=== PATIENT | female | born 1965 | race Caucasian/White ===

== ENCOUNTER 2022-11-08 14:55 | Outpatient (CLI) | payer OTHER | END 2022-11-08 20:24 | disposition home or self-care (01) | LOC: SCT 14:55 | PROVIDERS: ATTEND Family Medicine | DX: R22.1 Localized swelling, mass and lump, neck (principal); M47.812 Spondylosis without myelopathy or radiculopathy, cervical region | CPT/HCPCS: 70491; 76376; Q9967 ==

== ENCOUNTER 2023-05-06 22:06 | Emergency (ER) | payer OTHER ==
[~2023-05-06] VITALS: Ht 160 cm; Wt 81.6 kg
[2023-05-06 22:21] VITALS: BP_SYST 134; PULSE 78; RESP 18; TEMP 97.4; O2SAT 95
[2023-05-06] MEDS ORDERED: KETOROLAC TROMETHAMINE 60 MG/2 ML VIAL IM ONE (22:45)
[2023-05-06 23:15] LABS: CLARITY/URINE CLEAR (CLEAR); COLOR,URINE YELLOW (YELLOW); PH,URINE 6.5 (5.0-8.0)
[2023-05-06 23:16] LABS: BILIRUBIN,URINE NEGATIVE (NEGATIVE); BLOOD, URINE TRACE (NEGATIVE); GLUCOSE,URINE NEGATIVE (NEGATIVE); KETONES,URINE NEGATIVE (NEGATIVE); LEUKOCYTE ESTERASE ,URINE 2+ (NEGATIVE); NITRITE, URINE NEGATIVE (NEGATIVE); PROTEIN URINE NEGATIVE (NEGATIVE); UROBILINOGEN,URINE 0.2 (0.2-1.0)
[2023-05-06 23:30] LABS: BACTERIA,URINE FEW /HPF (None Seen)
[2023-05-06 23:31] LABS: BASOPHILS % (AUTO) 0.6 % (0.0-2.0); EOSINOPHILS # (AUTO) 0.1 K/uL (0.0-0.4); EOSINOPHILS % (AUTO) 1.9 % (0.0-4.0); LYMPHOCYTES # (AUTO) 1.8 K/uL (1.0-5.5); LYMPHOCYTES % (AUTO) 30.3 % (20.5-51.5); MEAN CORPUSCULAR HEMOGLOBIN 30 pg (27-31); MEAN CORPUSCULAR HGB CONC 33 % (32-36); MEAN CORPUSCULAR VOLUME 90 fL (79.0-98.0); MONOCYTES # (AUTO) 0.6 K/uL (0.0-1.0); NEUTROPHILS # (AUTO) 3.3 K/uL (1.8-7.7); NEUTROPHILS % (AUTO) 56.2 % (40.0-70.0); PLATELET COUNT (AUTO) 283 K/uL (130-430); RED BLOOD CELL COUNT(AUTO) 4.33 MIL/uL (4.2-6.2); WHITE BLOOD COUNT (AUTO) 5.9 K/uL (4.8-10.8)
[2023-05-06 23:36] LABS: CALCIUM 8.8 mg/dL (8.4-11.0); CREATININE 0.88 mg/dL (0.55-1.30); POTASSIUM 3.8 mmol/L (3.5-5.1)
[2023-05-06 23:41] LABS: ALBUMIN 3.7 g/dL (3.4-4.8); TOTAL BILIRUBIN 0.3 mg/dL (0.0-1.0)
[2023-05-07] MEDS ORDERED: cefTRIAXone 1 GM in LIDOCAINE 1%, 20 ML MDV 2.1 ML IM ONE ×2
[2023-05-07] MEDS ORDERED: NITR-85 PO (00:35)
[2023-05-07] MEDS ORDERED: NAPR-1172 PO (00:35)
[2023-05-07 00:42] VITALS: BP_SYST 126; PULSE 68; RESP 17; TEMP 97.4; O2SAT 96
== END 2023-05-07 00:42 | disposition home or self-care (01) ==
LOC: SED 22:06
DX: N39.0 Urinary tract infection, site not specified (principal); R51.9 Headache, unspecified; Z88.2 Allergy status to sulfonamides; Z91.040 Latex allergy status; Z79.899 Other long term (current) drug therapy
CPT/HCPCS: 99285; 70450; 80053; 81000; 85025; 87086; 36415; 76376; 96372 ×2; J1885; J0696; J2001